=== PATIENT | male | born 1960 | race Caucasian/White ===

== ENCOUNTER → 2017-09-28 | Outpatient (CLI) | payer BC | LOC: CARD 12:05 | PROVIDERS: ATTEND Family Medicine | DX: I70.209 Unspecified atherosclerosis of native arteries of extremities, unspecified extremity (principal) | CPT/HCPCS: 93925 ==

== ENCOUNTER → 2019-09-20 | Day surgery (SDC) | payer BC ==
[2019-09-18 11:43] LABS: BASOPHILS # (AUTO) 0.1 (0.0-0.1); EOSINOPHILS # (AUTO) 0.2 (0.0-0.4); EOSINOPHILS % 2.9 % (0.0-6.0); HEMATOCRIT 49.9 % (38.2-49.6); HEMOGLOBIN 17.1 g/dL (14.0-18.0); LYMPHOCYTES % 27.5 % (18.0-39.1); MEAN CORPUSCULAR HEMOGLOBIN 29.8 pg (28-32); MEAN CORPUSCULAR HGB CONC 34.3 g/dL (31-35); MEAN CORPUSCULAR VOLUME 87.1 fL (81-99); MONOCYTES # (AUTO) 0.5 (0.2-0.8); MONOCYTES % 7.6 % (4.4-11.3); NEUTROPHILS # (AUTO) 4.3 (2.1-6.9); NEUTROPHILS % 60.6 % (38.7-80.0); PLATELET COUNT 216 x10e3/uL (140-360); RED BLOOD COUNT 5.73 x10e6/uL (4.3-5.7); RED CELL DISTRIBUTION WIDTH 12.1 % (11.7-14.4)
[2019-09-18 11:54] LABS: INR 0.83; PROTHROMBIN TIME 11.9 seconds (11.9-14.5)
[2019-09-18 12:06] LABS: ALANINE AMINOTRANSFERASE 17 IU/L (0-55); ALBUMIN 3.9 g/dL (3.5-5.0); ALBUMIN/GLOBULIN RATIO 1.2 (0.8-2.0); ALKALINE PHOSPHATASE 107 IU/L (40-150); ANION GAP 17.2 mmol/L (8-16); BLOOD UREA NITROGEN 13 mg/dL (7-26); BUN/CREATININE RATIO 13 (6-25); CALCIUM 9.6 mg/dL (8.4-10.2); CARBON DIOXIDE 24 mmol/L (22-29); CHLORIDE 101 mmol/L (98-107); CREATININE, SERUM 1.04 mg/dL (0.72-1.25); EST GLOMERULAR FILTRATION RATE > 60 ML/MIN (60-); GLUCOSE 199 mg/dL (74-118); POTASSIUM 4.2 mmol/L (3.5-5.1); SODIUM 138 mmol/L (136-145)
[~2019-09-20] VITALS: Ht 180.3 cm; Wt 93.0 kg
[~2019-09-20] MED LIST: ACETAMINOPHEN 1000 MG/100 ML 100 ML IV ONE; ATORVASTATIN CA10 MG PO; BENZOCAINE 20% SPR 60 ML CAN ONE; GLIPIZIDE5 MG PO; KOMBIGLYZE XR1 EACH PO; LIDOCAINE HCL 2% LOCAL INJ 5 ML SDV VIAL INJ ONE; MIDAZOLAM HCL 2 MG/2 ML VIAL ONE; PROPOFOL IV EMULSION 10 MG/ML 20 ML VIAL ONE; SODIUM CHLORIDE 0.9% 1000ML 1,000 ML ONE
[2019-09-20 08:45] VITALS: BP 114/80
--- NOTE | 2019-09-20 08:45 | NUR ---
0845am Pt Received Rm #10 Bedside,Identfierx2. Back to baseline orientation.Oriented and appropriate.PERRLA,respirations even and unlabored on RA.Pulsesx4 PPx4PT/DP Cap refll brisk<3 sec.Prepped for JJ Pre surgical evaluation for potential valvular surgery. Skin warm and dry, integrity appears intact. IVg#20 in Rt hand.Presents healthy w/o s/s of infiltration or complaint.Abdomen soft and supple,pt offered toileting voided this am,Denies other needs . No personal affects with patient. Family at bedside. Peg .Pt and family verbalize understanding of procedural event. Anesthesia notified pt ready in Rm #10. carlin/carlos
[2019-09-20 12:05] VITALS: BP 105/70
== END | disposition home or self-care (01) ==
LOC: OR 09:26
PROVIDERS: ATTEND Internal Medicine
DX: I35.0 Nonrheumatic aortic (valve) stenosis (principal); I25.10 Atherosclerotic heart disease of native coronary artery without angina pectoris; I25.2 Old myocardial infarction; I10 Essential (primary) hypertension; E78.5 Hyperlipidemia, unspecified; R94.31 Abnormal electrocardiogram [ECG] [EKG]; E13.8 Other specified diabetes mellitus with unspecified complications; F17.210 Nicotine dependence, cigarettes, uncomplicated; Z82.49 Family history of ischemic heart disease and other diseases of the circulatory system; Z83.3 Family history of diabetes mellitus
CPT/HCPCS: 36415; 80053; 85025; 85610; 93312; 93320; 93325; J0131; J2001; J2250; J2704; J7030; 93307

== ENCOUNTER 2019-10-29 05:39 | Emergency (ER) | payer BC ==
[~2019-10-29] VITALS: Ht 180.3 cm; Wt 90.7 kg
[~2019-10-29 05:39] MED LIST changes: -ACETAMINOPHEN 1000 MG/100 ML 100 ML IV ONE; -BENZOCAINE 20% SPR 60 ML CAN ONE; -LIDOCAINE HCL 2% LOCAL INJ 5 ML SDV VIAL INJ ONE; -MIDAZOLAM HCL 2 MG/2 ML VIAL ONE; -PROPOFOL IV EMULSION 10 MG/ML 20 ML VIAL ONE; -SODIUM CHLORIDE 0.9% 1000ML 1,000 ML ONE
--- OUTSIDE RECORDS SUMMARY | 2019-10-29 05:43 | XMS REPORT ---
Author Author [facility] Address Unknown Phone Unavailable Care Team Providers Care Commercial Lines Underwriter Name Role Phone SCAR CONTRERAS Unavailable Unavailable Matthew VALADEZ Unavailable Unavailable Problems This patient has no known problems. Allergies, Adverse Reactions, Alerts This patient has no known allergies or adverse reactions. Medications This patient has no known medications. Results Test Description Test Time Test Comments Text Results Atomic Results Result Comments RAPID INFLUENZA A&B SCREEN 2019-10-24 13:33:00 RAPID INFLUENZA A AG (BEAKER) (test wqef=0267) Positive Negative, Inconclusive RAPID INFLUENZA B AG (BEAKER) (test ldon=9291) Negative Negative, Inconclusive ANAEROBIC [id number] 16:27:00* Test Item Value Reference Range Comments CULTURE (BEAKER) (test sdej=5625) No anaerobes isolated POCT-GLUCOSE [id number] 08:39:00* Test Item Value Reference Range Comments POC-GLUCOSE METER (BEAKER) (test fbye=4454) 184 mg/dL 70-110 : TESTED AT [facility] [address] [facility], [address]: Application Development Consultant/Supervisor Advice [id number] for MIKAELA DAVENPORT [id number] 06:43:00* Test Item Value Reference Range Comments PHOSPHORUS (BEAKER) (test nbqw=804) 3.0 mg/dL 2.3-4.7 Application Development Consultant ID - LESLI [id number] 06:43:00* Test Item Value Reference Range Comments MAGNESIUM (BEAKER) (test tdgx=135) 1.8 mg/dL 1.6-2.6 Application Development Consultant ID - LESLI MBASIC METABOLIC [id number] 06:43:00* Test Item Value Reference Range Comments SODIUM (BEAKER) (test zobb=944) 140 meq/L 136-145 POTASSIUM (BEAKER) (test zsbq=419) 4.0 meq/L 3.5-5.1 CHLORIDE (BEAKER) (test wjdi=639) 105 meq/L 98-107 CO2 (BEAKER) (test stmx=169) 29 meq/L 22-29 BLOOD UREA NITROGEN (BEAKER) (test hxsj=739) 8 mg/dL 7-21 CREATININE (BEAKER) (test gipw=910) 0.80 mg/dL 0.57-1.25 GLUCOSE RANDOM (BEAKER) (test ytwh=319) 206 mg/dL 70-105 CALCIUM (BEAKER) (test irxq=778) 8.5 mg/dL 8.4-10.2 EGFR (BEAKER) (test txqx=6759) 99 mL/min/1.73 sq m ESTIMATED GFR IS NOT ACCURATE CREATININE CLEARANCE IN PREDICTING GLOMERULAR FILTRATION RATE. ESTIMATED GFR IS NOT APPLICABLE FOR DIALYSIS PATIENTS. Application Development Consultant ID - LESLI [facility] (HEMOGRAM ONLY)2019-10-12 06:23:00* Test Item Value Reference Range Comments WHITE BLOOD CELL COUNT (BEAKER) (test nclc=535) 5.1 K/ L 3.5-10.5 RED BLOOD CELL COUNT (BEAKER) (test kcqo=675) 3.57 M/ L 4.63-6.08 HEMOGLOBIN (BEAKER) (test nhbr=673) 10.5 GM/DL 13.7-17.5 HEMATOCRIT (BEAKER) (test vcab=106) 32.1 % 40.1-51.0 MEAN CORPUSCULAR VOLUME (BEAKER) (test ksul=933) 89.9 fL 79.0-92.2 MEAN CORPUSCULAR HEMOGLOBIN (BEAKER) (test rsnb=315) 29.4 pg 25.7-32.2 MEAN CORPUSCULAR HEMOGLOBIN CONC (BEAKER) (test kgye=209) 32.7 GM/DL 32.3-36.5 RED CELL DISTRIBUTION WIDTH (BEAKER) (test cewq=602) 12.1 % 11.6-14.4 PLATELET COUNT (BEAKER) (test btsy=056) 177 K/CU MM 150-450 MEAN PLATELET VOLUME (BEAKER) (test agmn=577) 9.4 fL 9.4-12.4 NUCLEATED RED BLOOD CELLS (BEAKER) (test uclb=029) 0 /100 WBC 0-0 POCT-GLUCOSE [id number] 23:20:00* Test Item Value Reference Range Comments POC-GLUCOSE METER (BEAKER) (test zeku=3365) 212 mg/dL 70-110 : TESTED AT [facility] [address] [facility], [address]: Application Development Consultant/Supervisor Advice [id number] for EAGLIN, JALISSIA POCT-GLUCOSE [id number] 22:03:00* Test Item Value Reference Range Comments POC-GLUCOSE METER (BEAKER) (test oinh=7601) 244 mg/dL 70-110 : TESTED AT [place] [id number] [facility], [address]: Application Development Consultant/Supervisor Advice [phone] for EAGLIN, JALISSIA POCT-GLUCOSE [id number] 15:09:00* Test Item Value Reference Range Comments POC-GLUCOSE METER (BEAKER) (test pmqi=1071) 146 mg/dL 70-110 : TESTED AT [facility] [address] [facility], [address]: Application Development Consultant/Supervisor Advice [phone] for Jesis Wright SURGICALLY OBTAINED CULTURE + GRAM [id number] 10:21:00* Test Item Value Reference Range Comments CULTURE (BEAKER) (test ngwj=4389) No growth GRAM STAIN RESULT (BEAKER) (test unxl=2461) 1+ WBCs GRAM STAIN RESULT (BEAKER) (test sqgh=20217) No organisms seen [id number] 08:18:00* Test Item Value Reference Range Comments MAGNESIUM (BEAKER) (test spiq=781) 1.9 mg/dL 1.6-2.6 Specimen slightly hemolyzed Application Development Consultant ID - ROCK [id number] 08:18:00* Test Item Value Reference Range Comments PHOSPHORUS (BEAKER) (test fxga=215) 2.5 mg/dL 2.3-4.7 Specimen slightly hemolyzed Application Development Consultant ID - ROCK FBASIC METABOLIC [id number] 08:18:00* Test Item Value Reference Range Comments SODIUM (BEAKER) (test zztx=982) 138 meq/L 136-145 POTASSIUM (BEAKER) (test ibgp=348) 3.8 meq/L 3.5-5.1 Specimen slightly hemolyzed CHLORIDE (BEAKER) (test rwra=843) 104 meq/L 98-107 CO2 (BEAKER) (test dtps=255) 26 meq/L 22-29 BLOOD UREA NITROGEN (BEAKER) (test qtcq=024) 9 mg/dL 7-21 CREATININE (BEAKER) (test yric=913) 0.72 mg/dL 0.57-1.25 Specimen slightly hemolyzed GLUCOSE RANDOM (BEAKER) (test irdz=915) 156 mg/dL 70-105 CALCIUM (BEAKER) (test yglp=702) 8.4 mg/dL 8.4-10.2 EGFR (BEAKER) (test tewv=0287) 112 mL/min/1.73 sq m ESTIMATED GFR IS NOT ACCURATE CREATININE CLEARANCE IN PREDICTING GLOMERULAR FILTRATION RATE. ESTIMATED GFR IS NOT APPLICABLE FOR DIALYSIS PATIENTS. Application Development Consultant ID - ROCK [facility] (HEMOGRAM ONLY)2019-10-11 07:03:00* Test Item Value Reference Range Comments WHITE BLOOD CELL COUNT (BEAKER) (test kigg=016) 6.4 K/ L 3.5-10.5 RED BLOOD CELL COUNT (BEAKER) (test rrwx=796) 3.95 M/ L 4.63-6.08 HEMOGLOBIN (BEAKER) (test yczm=908) 11.4 GM/DL 13.7-17.5 HEMATOCRIT (BEAKER) (test odty=330) 34.8 % 40.1-51.0 MEAN CORPUSCULAR VOLUME (BEAKER) (test svxa=372) 88.1 fL 79.0-92.2 MEAN CORPUSCULAR HEMOGLOBIN (BEAKER) (test fwxy=927) 28.9 pg 25.7-32.2 MEAN CORPUSCULAR HEMOGLOBIN CONC (BEAKER) (test xbrc=207) 32.8 GM/DL 32.3-36.5 RED CELL DISTRIBUTION WIDTH (BEAKER) (test tlws=172) 12.1 % 11.6-14.4 PLATELET COUNT (BEAKER) (test xobe=774) 155 K/CU MM 150-450 MEAN PLATELET VOLUME (BEAKER) (test akfu=421) 10.1 fL 9.4-12.4 NUCLEATED RED BLOOD CELLS (BEAKER) (test inho=836) 0 /100 WBC 0-0 POCT-GLUCOSE [id number] 00:04:00* Test Item Value Reference Range Comments POC-GLUCOSE METER (BEAKER) (test nvqm=4593) 193 mg/dL 70-110 : TESTED AT [address] [place], [address]: Application Development Consultant/Supervisor Advice [phone] for JEFE WILKES POCT-GLUCOSE [id number] 22:37:00* Test Item Value Reference Range Comments POC-GLUCOSE METER (BEAKER) (test hibi=6955) 280 mg/dL 70-110 : TESTED AT [address], [address]: Application Development Consultant/Supervisor Advice [phone] for INGRIS LEW POCT-GLUCOSE [id number] 13:19:00* Test Item Value Reference Range Comments POC-GLUCOSE METER (BEAKER) (test vndr=4481) 140 mg/dL 70-110 : TESTED AT [address], [address]: Application Development Consultant/Supervisor Advice [phone] for ELVI LENNON POCT-GLUCOSE [id number] 07:56:00* Test Item Value Reference Range Comments POC-GLUCOSE METER (BEAKER) (test eabp=9591) 167 mg/dL 70-110 : TESTED AT [address], [address]: Application Development Consultant/Supervisor Advice [phone] for ELVI LENNON [id number] 07:01:00* Test Item Value Reference Range Comments PHOSPHORUS (BEAKER) (test clte=373) 1.6 mg/dL 2.3-4.7 Application Development Consultant ID - [id number] 07:01:00* Test Item Value Reference Range Comments MAGNESIUM (BEAKER) (test gzke=029) 1.8 mg/dL 1.6-2.6 Application Development Consultant ID - LABASIC METABOLIC [id number] 07:01:00* Test Item Value Reference Range Comments SODIUM (BEAKER) (test ivhd=498) 136 meq/L 136-145 POTASSIUM (BEAKER) (test uqdi=536) 3.8 meq/L 3.5-5.1 CHLORIDE (BEAKER) (test veha=081) 100 meq/L 98-107 CO2 (BEAKER) (test hprr=636) 29 meq/L 22-29 BLOOD UREA NITROGEN (BEAKER) (test stax=755) 9 mg/dL 7-21 CREATININE (BEAKER) (test awfb=017) 0.72 mg/dL 0.57-1.25 GLUCOSE RANDOM (BEAKER) (test jzwa=950) 155 mg/dL 70-105 CALCIUM (BEAKER) (test usmz=617) 8.8 mg/dL 8.4-10.2 EGFR (BEAKER) (test xlce=6322) 112 mL/min/1.73 sq m ESTIMATED GFR IS NOT ACCURATE CREATININE CLEARANCE IN PREDICTING GLOMERULAR FILTRATION RATE. ESTIMATED GFR IS NOT APPLICABLE FOR DIALYSIS PATIENTS. Application Development Consultant ID - LAPT/[id number] 06:39:00* Test Item Value Reference Range Comments PROTIME (BEAKER) (test dssn=403) 14.3 seconds 11.9-14.2 INR (BEAKER) (test qsrp=392) 1.1 <=5.9 PARTIAL THROMBOPLASTIN TIME (BEAKER) (test ppkt=153) 31.5 seconds 22.5-36.0 Effective 01/23/2019: PT Reference Range ChangeNew: 11.9-14.2 Previous: 11.7-14. 7RECOMMENDED COUMADIN/WARFARIN INR THERAPY RANGESSTANDARD DOSE: 2.0-3.0 Include s: PROPHYLAXIS for venous thrombosis, systemic embolization; TREATMENT for venou s thrombosis and/or pulmonary embolus.HIGH RISK: Target INR is 2.5-3.5 for patie nts wiht mechanical heart valves.CBC (HEMOGRAM ONLY)2019-10-10 06:31:00* Test Item Value Reference Range Comments WHITE BLOOD CELL COUNT (BEAKER) (test fywn=359) 6.1 K/ L 3.5-10.5 RED BLOOD CELL COUNT (BEAKER) (test vuel=162) 3.88 M/ L 4.63-6.08 HEMOGLOBIN (BEAKER) (test yjyh=988) 11.5 GM/DL 13.7-17.5 HEMATOCRIT (BEAKER) (test yclw=390) 35.1 % 40.1-51.0 MEAN CORPUSCULAR VOLUME (BEAKER) (test qimj=787) 90.5 fL 79.0-92.2 MEAN CORPUSCULAR HEMOGLOBIN (BEAKER) (test uekc=430) 29.6 pg 25.7-32.2 MEAN CORPUSCULAR HEMOGLOBIN CONC (BEAKER) (test fzhb=594) 32.8 GM/DL 32.3-36.5 RED CELL DISTRIBUTION WIDTH (BEAKER) (test zldb=198) 12.3 % 11.6-14.4 PLATELET COUNT (BEAKER) (test zwoq=089) 113 K/CU MM 150-450 MEAN PLATELET VOLUME (BEAKER) (test wjil=455) 10.1 fL 9.4-12.4 NUCLEATED RED BLOOD CELLS (BEAKER) (test zcko=964) 0 /100 WBC 0-0 RAD, CHEST, 1 VIEW, NON [id number] 05:39:00while patient is intubated or has chest tubes.Reason for exam:->Status post CV SurgeryShould this be performed at the bedside?->YesFINAL REPORT CLINICAL INDICATION: Postop Comparison: 10/09/2019 The cardiomediastinal contours are stable. The lung volumes remain low. Bilateral parenchymal opacities are similar to previous. There is no pneumothorax. A right IJ CVC has been removed. Remaining support lines are stable. Signed: Spencer Noe MDR[facility]ort Verified Date/Time: 10/10/2019 05:39:45 IC ACID, [id number] 13:27:00* Test Item Value Reference Range Comments LACTATE BLOOD ARTERIAL (2) (BEAKER) (test yijf=0546) 0.9 mmol/L 0.5-2.2 Specimen slightly hemolyzed Application Development Consultant ID - JACOB RAMOS SATURATION, [id number] 12:56:00* Test Item Value Reference Range Comments O2 SATURATION (MEASURED) (BEAKER) (test gckm=1699) 61.6 % POCT-GLUCOSE [id number] 12:50:00* Test Item Value Reference Range Comments POC-GLUCOSE METER (BEAKER) (test zqbi=0576) 154 mg/dL 70-110 : TESTED AT [facility] [address] [facility], [address]: Application Development Consultant/Supervisor Advice [phone] for DHARA SR RAD, CHEST, 1 VIEW, NON [id number] 06:52:00while patient is intubated or has chest tubes.Reason for exam:->Status post CV SurgeryShould this be performed at the bedside?->YesFINAL REPORT RAD, CHEST, 1 VIEW, NON DEPT INDICATION: Status post CV Surgery COMPARISON: Prior day's exam FINDINGS: Portable frontal view of the chest. IMPRESSION: Support Lines: Stable. Lungs and pleura: Stable interstitial congestion. Trace bilateral effusions. No pneumothorax.Heart and mediastinum: Stable contours. Stable surgical changes.Additional findings: None. Signed: JR Del Castillo Robert MDRepjohn Verified Date/Time: 10/09/2019 06:52:44 Reading Location: [facility] Radiology Reading Room [id number] 04:00:00* Test Item Value Reference Range Comments PHOSPHORUS (BEAKER) (test hnib=925) 2.3 mg/dL 2.3-4.7 Application Development Consultant ID - [id number] 04:00:00* Test Item Value Reference Range Comments MAGNESIUM (BEAKER) (test okfd=131) 1.9 mg/dL 1.6-2.6 Application Development Consultant ID - GALAPBASIC METABOLIC [id number] 04:00:00* Test Item Value Reference Range Comments SODIUM (BEAKER) (test jkdh=309) 135 meq/L 136-145 POTASSIUM (BEAKER) (test agkv=647) 4.2 meq/L 3.5-5.1 CHLORIDE (BEAKER) (test tumc=352) 106 meq/L 98-107 CO2 (BEAKER) (test qrvv=617) 23 meq/L 22-29 BLOOD UREA NITROGEN (BEAKER) (test kotu=778) 10 mg/dL 7-21 CREATININE (BEAKER) (test qvcv=662) 0.75 mg/dL 0.57-1.25 GLUCOSE RANDOM (BEAKER) (test ttup=201) 206 mg/dL 70-105 CALCIUM (BEAKER) (test ozcy=272) 8.4 mg/dL 8.4-10.2 EGFR (BEAKER) (test cxuo=2472) 107 mL/min/1.73 sq m ESTIMATED GFR IS NOT ACCURATE CREATININE CLEARANCE IN PREDICTING GLOMERULAR FILTRATION RATE. ESTIMATED GFR IS NOT APPLICABLE FOR DIALYSIS PATIENTS. Application Development Consultant ID - GALAPLACTIC ACID, [id number] 03:36:00* Test Item Value Reference Range Comments LACTATE BLOOD ARTERIAL (2) (BEAKER) (test rnpx=7015) 0.9 mmol/L 0.5-2.2 Application Development Consultant ID - GALAPOXYGEN SATURATION, [id number] 03:33:00* Test Item Value Reference Range Comments O2 SATURATION (MEASURED) (BEAKER) (test ldsw=8478) 87.4 % BLOOD GAS, [id number] 03:32:00* Test Item Value Reference Range Comments PH ARTERIAL (BEAKER) (test gbce=534) 7.36 7.35-7.45 PCO2 ARTERIAL (BEAKER) (test aywp=919) 46 mmHg 35-45 PO2 ARTERIAL (BEAKER) (test hdti=534) 114 mmHg 80-90 O2 SATURATION ARTERIAL (BEAKER) (test lrll=279) 98.0 % 96.0-97.0 HCO3 ARTERIAL (BEAKER) (test gdkf=948) 25 mmol/L 21-29 BASE EXCESS ARTERIAL (BEAKER) (test ljlw=499) -0.7 mmol/L -2.0-3.0 PATIENT TEMPERATURE (BEAKER) (test zkpu=1085) 36.7 C FIO2 (BEAKER) (test iaal=2062) 36.0 % CALCIUM, [id number] 03:31:00* Test Item Value Reference Range Comments CALCIUM IONIZED (BEAKER) (test nxer=508) 1.18 mmol/L 1.12-1.27 PH, BLOOD (BEAKER) (test iihg=0666) 7.35 CBC (HEMOGRAM ONLY)2019-10-09 03:23:00* Test Item Value Reference Range Comments WHITE BLOOD CELL COUNT (BEAKER) (test suzm=176) 8.9 K/ L 3.5-10.5 RED BLOOD CELL COUNT (BEAKER) (test gheo=422) 3.60 M/ L 4.63-6.08 HEMOGLOBIN (BEAKER) (test paoh=833) 10.6 GM/DL 13.7-17.5 HEMATOCRIT (BEAKER) (test yjkm=025) 32.8 % 40.1-51.0 MEAN CORPUSCULAR VOLUME (BEAKER) (test rjif=839) 91.1 fL 79.0-92.2 MEAN CORPUSCULAR HEMOGLOBIN (BEAKER) (test kdiu=915) 29.4 pg 25.7-32.2 MEAN CORPUSCULAR HEMOGLOBIN CONC (BEAKER) (test hfon=730) 32.3 GM/DL 32.3-36.5 RED CELL DISTRIBUTION WIDTH (BEAKER) (test qkso=390) 12.7 % 11.6-14.4 PLATELET COUNT (BEAKER) (test eyxb=959) 102 K/CU MM 150-450 MEAN PLATELET VOLUME (BEAKER) (test ndxh=068) 9.9 fL 9.4-12.4 NUCLEATED RED BLOOD CELLS (BEAKER) (test sqrt=692) 0 /100 WBC 0-0 POCT-GLUCOSE [id number] 15:28:00* Test Item Value Reference Range Comments POC-GLUCOSE METER (BEAKER) (test zcee=3892) 113 mg/dL 70-110 : TESTED AT [address], [address]: Application Development Consultant/Supervisor Advice [phone] for JARETH ROD POCT-GLUCOSE [id number] 12:58:00* Test Item Value Reference Range Comments POC-GLUCOSE METER (AKER) (test dhkj=9949) 105 mg/dL 70-110 : TESTED AT [address], [address]: Application Development Consultant/Supervisor Advice [phone] for JARETH ROD LACTIC ACID, [id number] 10:14:00* Test Item Value Reference Range Comments LACTATE BLOOD ARTERIAL (2) ([facility]) (test ohsr=1890) 1.1 mmol/L 0.5-2.2 Application Development Consultant ID - LESLI MPOCT-GLUCOSE [id number] 09:51:00* Test Item Value Reference Range Comments POC-GLUCOSE METER (BEAKER) (test vltf=4841) 124 mg/dL 70-110 : TESTED AT [address], [address]: Application Development Consultant/Supervisor Advice [phone] for JARETH ROD OXYGEN SATURATION, [id number] 09:51:00* Test Item Value Reference Range Comments O2 SATURATION (MEASURED) (BEAKER) (test szue=9790) 73.5 % BLOOD GAS, [id number] 09:50:00* Test Item Value Reference Range Comments PH ARTERIAL (BEAKER) (test ouys=819) 7.42 7.35-7.45 PCO2 ARTERIAL (BEAKER) (test galp=804) 40 mmHg 35-45 PO2 ARTERIAL (BEAKER) (test jjjz=079) 74 mmHg 80-90 O2 SATURATION ARTERIAL (BEAKER) (test oqvy=269) 95.4 % 96.0-97.0 HCO3 ARTERIAL (BEAKER) (test xouj=711) 26 mmol/L 21-29 BASE EXCESS ARTERIAL (BEAKER) (test sfze=259) 0.8 mmol/L -2.0-3.0 PATIENT TEMPERATURE (BEAKER) (test mjhc=8127) 36.6 C FIO2 (BEAKER) (test qaxm=6087) 36.0 % POCT-GLUCOSE [id number] 06:13:00* Test Item Value Reference Range Comments POC-GLUCOSE METER (BEAKER) (test xgal=0725) 130 mg/dL 70-110 : TESTED AT [place] [id number] [facility], [address]: Application Development Consultant/Supervisor Advice [phone] for MEGAN RAMSAY [id number] 04:35:00* Test Item Value Reference Range Comments PHOSPHORUS (BEAKER) (test mlgc=295) 4.0 mg/dL 2.3-4.7 Application Development Consultant ID - [id number] 04:35:00* Test Item Value Reference Range Comments MAGNESIUM (BEAKER) (test ahov=616) 2.0 mg/dL 1.6-2.6 Application Development Consultant ID - GALAPBASIC METABOLIC [id number] 04:35:00* Test Item Value Reference Range Comments SODIUM (BEAKER) (test rqci=927) 141 meq/L 136-145 POTASSIUM (BEAKER) (test ryps=316) 4.0 meq/L 3.5-5.1 CHLORIDE (BEAKER) (test uxyn=897) 111 meq/L 98-107 CO2 (BEAKER) (test lrma=648) 24 meq/L 22-29 BLOOD UREA NITROGEN (BEAKER) (test ioyx=998) 11 mg/dL 7-21 CREATININE (BEAKER) (test xnth=797) 0.79 mg/dL 0.57-1.25 GLUCOSE RANDOM (BEAKER) (test doqi=977) 116 mg/dL 70-105 CALCIUM (BEAKER) (test rbpy=374) 8.3 mg/dL 8.4-10.2 EGFR (BEAKER) (test tbfr=6402) 100 mL/min/1.73 sq m ESTIMATED GFR IS NOT ACCURATE CREATININE CLEARANCE IN PREDICTING GLOMERULAR FILTRATION RATE. ESTIMATED GFR IS NOT APPLICABLE FOR DIALYSIS PATIENTS. Application Development Consultant ID - GALAPLACTIC ACID, [id number] 04:31:00* Test Item Value Reference Range Comments LACTATE BLOOD ARTERIAL (2) (BEAKER) (test berb=9053) 2.0 mmol/L 0.5-2.2 Application Development Consultant ID - LESLI [id number] 04:30:00* Test Item Value Reference Range Comments PROTIME (BEAKER) (test eqsl=416) 14.8 seconds 11.9-14.2 INR (BEAKER) (test edlf=806) 1.2 <=5.9 PARTIAL THROMBOPLASTIN TIME (BEAKER) (test evsr=307) 30.5 seconds 22.5-36.0 Effective 01/23/2019: PT Reference Range ChangeNew: 11.9-14.2 Previous: 11.7-14. 7RECOMMENDED COUMADIN/WARFARIN INR THERAPY RANGESSTANDARD DOSE: 2.0-3.0 Include s: PROPHYLAXIS for venous thrombosis, systemic embolization; TREATMENT for venou s thrombosis and/or pulmonary embolus.HIGH RISK: Target INR is 2.5-3.5 for patie nts wiht mechanical heart valves.CALCIUM, [id number] 04:20:00* Test Item Value Reference Range Comments CALCIUM IONIZED (BEAKER) (test wnrq=144) 1.14 mmol/L 1.12-1.27 PH, BLOOD (BEAKER) (test snak=9275) 7.34 OXYGEN SATURATION, [id number] 04:19:00* Test Item Value Reference Range Comments O2 SATURATION (MEASURED) (BEAKER) (test zgla=2849) 68.5 % CBC (HEMOGRAM ONLY)2019-10-08 04:18:00* Test Item Value Reference Range Comments WHITE BLOOD CELL COUNT (BEAKER) (test xiun=814) 10.1 K/ L 3.5-10.5 RED BLOOD CELL COUNT (BEAKER) (test ooxc=470) 3.81 M/ L 4.63-6.08 HEMOGLOBIN (BEAKER) (test halt=108) 11.4 GM/DL 13.7-17.5 HEMATOCRIT (BEAKER) (test aqdc=786) 33.3 % 40.1-51.0 MEAN CORPUSCULAR VOLUME (BEAKER) (test ddkx=358) 87.4 fL 79.0-92.2 MEAN CORPUSCULAR HEMOGLOBIN (BEAKER) (test qcam=656) 29.9 pg 25.7-32.2 MEAN CORPUSCULAR HEMOGLOBIN CONC (BEAKER) (test ywyd=277) 34.2 GM/DL 32.3-36.5 RED CELL DISTRIBUTION WIDTH (BEAKER) (test rljj=827) 12.7 % 11.6-14.4 PLATELET COUNT (BEAKER) (test tpgf=634) 131 K/CU MM 150-450 MEAN PLATELET VOLUME (BEAKER) (test ybsj=074) 9.6 fL 9.4-12.4 NUCLEATED RED BLOOD CELLS (BEAKER) (test yzhv=398) 0 /100 WBC 0-0 RAD, CHEST, 1 VIEW, NON [id number] 04:09:00while patient is intubated or has chest tubes.Reason for exam:->Status post CV SurgeryShould this be performed at the bedside?->YesFINAL REPORT CLINICAL INDICATION: Postop Comparison: 10/07/2019 The cardiomediastinal contours are stable. The lung volumes have decreased slightly after extubation. Patchy infrahilar opacities may reflect atelectasis but pneumonitis should be excluded clinically. Trace bilateral effusions are suspected. There is no pneumothorax. Remaining support lines are stable. Signed: Spencer Noe [facility] Verified Date/Time: 10/08/2019 04:09:48 -GLUCOSE [id number] 02:14:00* Test Item Value Reference Range Comments POC-GLUCOSE METER (BEAKER) (test gixk=9831) 123 mg/dL 70-110 : TESTED AT [facility] [address] [facility], [id number]: Application Development Consultant/Supervisor Advice [id number] for CARA CHANEY POCT-GLUCOSE [id number] 00:18:00* Test Item Value Reference Range Comments POC-GLUCOSE METER (BEAKER) (test kufd=9530) 132 mg/dL 70-110 : TESTED AT [address], [address]: Application Development Consultant/Supervisor Advice [id number] for MEGAN RAMSAY POCT-GLUCOSE [id number] 23:18:00* Test Item Value Reference Range Comments POC-GLUCOSE METER (BEAKER) (test zctm=8839) 131 mg/dL 70-110 : TESTED AT [address], [address]: Application Development Consultant/Supervisor Advice [id number] for VINCENT SANTAMARIA POCT-GLUCOSE [id number] 22:22:00* Test Item Value Reference Range Comments POC-GLUCOSE METER (BEAKER) (test rwso=0920) 157 mg/dL 70-110 : TESTED AT [address], [address]: Application Development Consultant/Supervisor Advice [id number] for BHUPENDRA MEDEIROS POCT-GLUCOSE [id number] 21:22:00* Test Item Value Reference Range Comments POC-GLUCOSE METER (BEAKER) (test kyoo=4219) 156 mg/dL 70-110 : TESTED AT [address], [address]: Application Development Consultant/Supervisor Advice [id number] for CARA CHANEY POCT-GLUCOSE [id number] 20:31:00* Test Item Value Reference Range Comments POC-GLUCOSE METER (BEAKER) (test zzux=0579) 154 mg/dL 70-110 : TESTED AT [address], [address]: Application Development Consultant/Supervisor Advice [id number] for BISHOP- CARA LUNDBERG LACTIC ACID, [id number] 19:57:00* Test Item Value Reference Range Comments LACTATE BLOOD ARTERIAL (2) (BEAKER) (test mlsl=5000) 3.4 mmol/L 0.5-2.2 Specimen slightly hemolyzed Application Development Consultant ID - BSBLOOD GAS, [id number] 19:52:00* Test Item Value Reference Range Comments PH ARTERIAL (BEAKER) (test jfkk=092) 7.33 7.35-7.45 PCO2 ARTERIAL (BEAKER) (test xjsj=853) 52 mmHg 35-45 PO2 ARTERIAL (BEAKER) (test axww=755) 110 mmHg 80-90 O2 SATURATION ARTERIAL (BEAKER) (test pgfe=920) 97.6 % 96.0-97.0 HCO3 ARTERIAL (BEAKER) (test zrsq=699) 26 mmol/L 21-29 BASE EXCESS ARTERIAL (BEAKER) (test pttk=782) -0.3 mmol/L -2.0-3.0 PATIENT TEMPERATURE (BEAKER) (test kzwb=7403) 37.0 C FIO2 (BEAKER) (test gfxv=1120) 100.0 % GLUCOSE-STAT [id number] 19:52:00* Test Item Value Reference Range Comments GLUCOSE RANDOM (BEAKER) (test ijvk=180) 159 mg/dL 70-110 HGB/HCT (H&H) - STAT [id number] 19:52:00* Test Item Value Reference Range Comments HEMOGLOBIN (BEAKER) (test pgmi=813) 13.1 g/dL 13.0-16.8 HEMATOCRIT (BEAKER) (test trhf=315) 39.0 % 40.0-50.0 OXYGEN SATURATION, [id number] 19:51:00* Test Item Value Reference Range Comments O2 SATURATION (MEASURED) (BEAKER) (test oyae=9775) 71.2 % SODIUM NA-STAT [id number] 19:51:00* Test Item Value Reference Range Comments SODIUM (BEAKER) (test egkl=441) 142 meq/L 135-148 POTASSIUM-STAT [id number] 19:51:00* Test Item Value Reference Range Comments POTASSIUM (BEAKER) (test kiws=316) 4.3 meq/L 3.6-5.5 POCT-GLUCOSE [id number] 18:58:00* Test Item Value Reference Range Comments POC-GLUCOSE METER (BEAKER) (test cybu=2623) 199 mg/dL 70-110 : TESTED AT [place] [id number] [facility], [address]: Application Development Consultant/Supervisor Advice [phone] for MODIC, MEAGAN POCT-GLUCOSE [id number] 18:53:00* Test Item Value Reference Range Comments POC-GLUCOSE METER (BEAKER) (test eqtx=1217) 216 mg/dL 70-110 : TESTED AT [facility] [address] [facility], [address]: Application Development Consultant/Supervisor Advice [id number] for MODIC, MEAGAN THROMBOELASTOGRAPH (TEG)2019-10-07 18:41:00* Test Item Value Reference Range Comments TEG ACTIVATED CLOTTING TIME (BEAKER) (test jnuz=8402) 4.9 minutes 4.0-7.0 TEG FIBRINOGEN ACTIVITY (BEAKER) (test cnri=3448) 56.6 degrees 61.0-73.0 TEG PLT. AGGREGATION (BEAKER) (test xbqz=4072) 46.9 MM 55.0-65.0 TEG FIBRINOLYSIS (BEAKER) (test ozyp=2302) 0.0 % 0.0-5.0 TGH ACTIVATED CLOTTING TIME (BEAKER) (test flqa=2334) 4.8 minutes 4.0-7.0 TGH FIBRINOGEN ACTIVITY (BEAKER) (test swrk=1250) 60.4 degrees 61.0-73.0 TGH PLT. AGGREGATION (BEAKER) (test hrbs=5820) 54.3 MM 55.0-65.0 TGH FIBRINOLYSIS (BEAKER) (test juov=4946) 0.2 % 0.0-5.0 [id number] 18:31:00* Test Item Value Reference Range Comments POTASSIUM (BEAKER) (test deta=629) 3.8 meq/L 3.5-5.1 Application Development Consultant ID - [id number] 18:31:00* Test Item Value Reference Range Comments GLUCOSE RANDOM (BEAKER) (test rqud=125) 222 mg/dL 70-105 Application Development Consultant ID - BSLACTIC ACID, [id number] 18:30:00* Test Item Value Reference Range Comments LACTATE BLOOD ARTERIAL (2) (BEAKER) (test zhij=2612) 2.0 mmol/L 0.5-2.2 Application Development Consultant ID - BSBLOOD GAS, [id number] 18:08:00* Test Item Value Reference Range Comments PH ARTERIAL (BEAKER) (test kmlc=298) 7.38 7.35-7.45 PCO2 ARTERIAL (BEAKER) (test ydae=736) 43 mmHg 35-45 PO2 ARTERIAL (BEAKER) (test rfln=087) 97 mmHg 80-90 O2 SATURATION ARTERIAL (BEAKER) (test oisk=784) 97.5 % 96.0-97.0 HCO3 ARTERIAL (BEAKER) (test hzie=121) 25 mmol/L 21-29 BASE EXCESS ARTERIAL (BEAKER) (test grms=561) -1.0 mmol/L -2.0-3.0 PATIENT TEMPERATURE (BEAKER) (test ltnw=2382) 36.3 C FIO2 (BEAKER) (test ltlx=0626) 60.0 % GLUCOSE-STAT [id number] 18:08:00* Test Item Value Reference Range Comments GLUCOSE RANDOM (BEAKER) (test mxvt=635) 216 mg/dL 70-110 SODIUM NA-STAT [id number] 18:03:00* Test Item Value Reference Range Comments SODIUM (BEAKER) (test zjrq=443) 140 meq/L 135-148 POTASSIUM-STAT [id number] 18:03:00* Test Item Value Reference Range Comments POTASSIUM (BEAKER) (test zzlw=444) 3.7 meq/L 3.6-5.5 HGB/HCT (H&H) - STAT [id number] 18:03:00* Test Item Value Reference Range Comments HEMOGLOBIN (BEAKER) (test vols=399) 13.5 g/dL 13.0-16.8 HEMATOCRIT (BEAKER) (test mfph=712) 40.0 % 40.0-50.0 POCT-GLUCOSE [id number] 17:28:00* Test Item Value Reference Range Comments POC-GLUCOSE METER (BEAKER) (test xzwt=3436) 189 mg/dL 70-110 : TESTED AT [facility] [address] [facility], [id number]: Application Development Consultant/Supervisor Advice [phone]=[id number] for MEAGAN SIFUENTES BASIC METABOLIC [id number] 16:46:00* Test Item Value Reference Range Comments SODIUM (BEAKER) (test vxkc=425) 143 meq/L 136-145 POTASSIUM (BEAKER) (test rrsn=431) 4.0 meq/L 3.5-5.1 Specimen slightly hemolyzed CHLORIDE (BEAKER) (test gnhy=929) 110 meq/L 98-107 CO2 (BEAKER) (test zmvn=532) 24 meq/L 22-29 BLOOD UREA NITROGEN (BEAKER) (test bwnr=713) 11 mg/dL 7-21 CREATININE (BEAKER) (test qvkz=616) 0.79 mg/dL 0.57-1.25 Specimen slightly hemolyzed GLUCOSE RANDOM (BEAKER) (test ctsr=538) 216 mg/dL 70-105 CALCIUM (BEAKER) (test mntr=253) 8.6 mg/dL 8.4-10.2 EGFR (BEAKER) (test dzfy=5803) 100 mL/min/1.73 sq m ESTIMATED GFR IS NOT ACCURATE CREATININE CLEARANCE IN PREDICTING GLOMERULAR FILTRATION RATE. ESTIMATED GFR IS NOT APPLICABLE FOR DIALYSIS PATIENTS. Application Development Consultant ID - BSRAD, CHEST, 1 VIEW, NON [id number] 16:39:00Reason for exam:- >Status post CV Surgery post op day 0Should this be performed at the bedside?-> YesFINAL REPORT AP chest dated 10/07/2019 Comment: Heart is in upper limits of normal in size. Patient is status post sternotomy. Pulmonary vasculature is unremarkable. Subsegmental atelectasis is seen in the left lower lobe. The rest of the lungs are clear. Endotracheal tube, mediastinal tube, nasogastric tube, left chest tube, and right IJ central venous catheter are present. There is trace left pleural effusion. Signed: Jaya Best MDReport Verified Date/Time: 10/07/2019 16:39:27 Reading Location: [address] Consult Reading Room [id number] 16:37:00* Test Item Value Reference Range Comments MAGNESIUM (BEAKER) (test fqcx=664) 2.3 mg/dL 1.6-2.6 Specimen slightly hemolyzed Application Development Consultant ID - [id number] 16:37:00* Test Item Value Reference Range Comments PHOSPHORUS (BEAKER) (test bxja=385) 3.6 mg/dL 2.3-4.7 Specimen slightly hemolyzed Application Development Consultant ID - BSHEPATIC FUNCTION [id number] 16:37:00* Test Item Value Reference Range Comments TOTAL PROTEIN (BEAKER) (test ylby=481) 5.6 gm/dL 6.0-8.3 Specimen slightly hemolyzed ALBUMIN (BEAKER) (test ehsl=6235) 3.7 g/dL 3.5-5.0 Specimen slightly hemolyzed BILIRUBIN TOTAL (BEAKER) (test hlvp=637) 1.0 mg/dL 0.2-1.2 Specimen slightly hemolyzed BILIRUBIN DIRECT (BEAKER) (test gmul=959) 0.4 mg/dL 0.1-0.5 Specimen slightly hemolyzed ALKALINE PHOSPHATASE (BEAKER) (test ydqa=605) 71 U/L 40-150 AST (SGOT) (BEAKER) (test utro=996) 31 U/L 5-34 Specimen slightly hemolyzed ALT (SGPT) (BEAKER) (test vksv=259) 16 U/L 6-55 Specimen slightly hemolyzed Application Development Consultant ID - [id number] 16:23:00* Test Item Value Reference Range Comments FIBRINOGEN LEVEL (BEAKER) (test dftf=758) 229 mg/dl 225-434 [id number] 16:23:00* Test Item Value Reference Range Comments PROTIME (BEAKER) (test qyge=852) 15.8 seconds 11.9-14.2 INR (BEAKER) (test xnfs=392) 1.3 <=5.9 PARTIAL THROMBOPLASTIN TIME (BEAKER) (test oneh=312) 29.8 seconds 22.5-36.0 Effective 01/23/2019: PT Reference Range ChangeNew: 11.9-14.2 Previous: 11.7-14. 7RECOMMENDED COUMADIN/WARFARIN INR THERAPY RANGESSTANDARD DOSE: 2.0-3.0 Include s: PROPHYLAXIS for venous thrombosis, systemic embolization; TREATMENT for venou s thrombosis and/or pulmonary embolus.HIGH RISK: Target INR is 2.5-3.5 for patie nts wiht mechanical heart valves.LACTIC ACID, [id number] 16:22:00* Test Item Value Reference Range Comments LACTATE BLOOD ARTERIAL (2) (BEAKER) (test uwkp=2089) 2.9 mmol/L 0.5-2.2 Specimen slightly hemolyzed Application Development Consultant ID - BSCBC W/PLT COUNT & AUTO [id number] 16:14:00* Test Item Value Reference Range Comments WHITE BLOOD CELL COUNT (BEAKER) (test zjnq=018) 9.6 K/ L 3.5-10.5 RED BLOOD CELL COUNT (BEAKER) (test hone=239) 4.34 M/ L 4.63-6.08 HEMOGLOBIN (BEAKER) (test yumj=788) 13.1 GM/DL 13.7-17.5 HEMATOCRIT (BEAKER) (test ywom=449) 37.8 % 40.1-51.0 MEAN CORPUSCULAR VOLUME (BEAKER) (test pqqj=122) 87.1 fL 79.0-92.2 MEAN CORPUSCULAR HEMOGLOBIN (BEAKER) (test wzzb=712) 30.2 pg 25.7-32.2 MEAN CORPUSCULAR HEMOGLOBIN CONC (BEAKER) (test vtxg=076) 34.7 GM/DL 32.3-36.5 RED CELL DISTRIBUTION WIDTH (BEAKER) (test nmjr=417) 12.4 % 11.6-14.4 PLATELET COUNT (BEAKER) (test hxwo=865) 121 K/CU MM 150-450 MEAN PLATELET VOLUME (BEAKER) (test appy=705) 9.7 fL 9.4-12.4 NUCLEATED RED BLOOD CELLS (BEAKER) (test wtfr=941) 0 /100 WBC 0-0 NEUTROPHILS RELATIVE PERCENT (BEAKER) (test mpyq=281) 77 % LYMPHOCYTES RELATIVE PERCENT (BEAKER) (test xaxc=425) 13 % MONOCYTES RELATIVE PERCENT (BEAKER) (test idih=426) 9 % EOSINOPHILS RELATIVE PERCENT (BEAKER) (test umxu=976) 0 % BASOPHILS RELATIVE PERCENT (BEAKER) (test aozf=310) 0 % NEUTROPHILS ABSOLUTE COUNT (BEAKER) (test akry=849) 7.34 K/ L 1.78-5.38 LYMPHOCYTES ABSOLUTE COUNT (BEAKER) (test exze=636) 1.21 K/ L 1.32-3.57 MONOCYTES ABSOLUTE COUNT (BEAKER) (test cmye=638) 0.85 K/ L 0.30-0.82 EOSINOPHILS ABSOLUTE COUNT (BEAKER) (test rnni=784) 0.04 K/ L 0.04-0.54 BASOPHILS ABSOLUTE COUNT (BEAKER) (test rdhr=117) 0.04 K/ L 0.01-0.08 IMMATURE GRANULOCYTES-RELATIVE PERCENT (BEAKER) (test tknu=2695) 1 % 0-1 CALCIUM, [id number] 16:06:00* Test Item Value Reference Range Comments CALCIUM IONIZED (BEAKER) (test sdtg=780) 1.17 mmol/L 1.12-1.27 PH, BLOOD (BEAKER) (test tojv=1525) 7.37 BLOOD GAS, [id number] 16:04:00* Test Item Value Reference Range Comments PH ARTERIAL (BEAKER) (test hkds=856) 7.37 7.35-7.45 PCO2 ARTERIAL (BEAKER) (test gwxs=853) 43 mmHg 35-45 PO2 ARTERIAL (BEAKER) (test lria=048) 79 mmHg 80-90 O2 SATURATION ARTERIAL (BEAKER) (test ajww=141) 96.1 % 96.0-97.0 HCO3 ARTERIAL (BEAKER) (test tqry=372) 25 mmol/L 21-29 BASE EXCESS ARTERIAL (BEAKER) (test wtob=415) -1.1 mmol/L -2.0-3.0 PATIENT TEMPERATURE (BEAKER) (test uqcm=3291) 35.8 C FIO2 (BEAKER) (test hroc=4845) 60.0 % OXYGEN SATURATION, [id number] 16:03:00* Test Item Value Reference Range Comments O2 SATURATION (MEASURED) (BEAKER) (test cuwk=1651) 76.5 % [id number] 14:48:00* Test Item Value Reference Range Comments ACTIVATED CLOTTING TIME (BEAKER) (test inxu=741) 98 sec Reference Range: 74- 137 seconds, Baseline/TESTED AT [place] [id number] 14:48:00* Test Item Value Reference Range Comments ACTIVATED CLOTTING TIME (BEAKER) (test onwh=822) 543 sec Reference Range: 74-137 seconds, Baseline/TESTED AT [place] [id number] 14:48:00* Test Item Value Reference Range Comments ACTIVATED CLOTTING TIME (BEAKER) (test erxi=684) 444 sec Reference Range: 74-137 seconds, Baseline/TESTED AT [place] [id number] 14:48:00* Test Item Value Reference Range Comments ACTIVATED CLOTTING TIME (BEAKER) (test begw=437) 560 sec Reference Range: 74-137 seconds, Baseline/TESTED AT [place] [id number] 14:48:00* Test Item Value Reference Range Comments ACTIVATED CLOTTING TIME (BEAKER) (test hrjj=909) 610 sec Reference Range: 74-137 seconds, Baseline/TESTED AT [place] [id number] 14:48:00* Test Item Value Reference Range Comments ACTIVATED CLOTTING TIME (BEAKER) (test awum=018) 653 sec Reference Range: 74-137 seconds, Baseline/TESTED AT [place] [address] [id number] 14:48:00* Test Item Value Reference Range Comments ACTIVATED CLOTTING TIME (BEAKER) (test tymf=092) 456 sec Reference Range: 74-137 seconds, Baseline/TESTED AT [place] [address] [id number] 14:48:00* Test Item Value Reference Range Comments ACTIVATED CLOTTING TIME (BEAKER) (test gpir=328) 571 sec Reference Range: 74-137 seconds, Baseline/TESTED AT [place] [address] [id number] 14:48:00* Test Item Value Reference Range Comments ACTIVATED CLOTTING TIME (BEAKER) (test icjl=126) 389 sec Reference Range: 74-137 seconds, Baseline/TESTED AT [place] [address] BLOOD GAS, [id number] 14:07:00* Test Item Value Reference Range Comments PH ARTERIAL (BEAKER) (test ynpf=356) 7.29 7.35-7.45 PCO2 ARTERIAL (BEAKER) (test ottp=325) 46 mmHg 35-45 PO2 ARTERIAL (BEAKER) (test rqcf=649) 142 mmHg 80-90 O2 SATURATION ARTERIAL (BEAKER) (test qqib=020) 98.6 % 96.0-97.0 HCO3 ARTERIAL (BEAKER) (test ffwl=856) 22 mmol/L 21-29 BASE EXCESS ARTERIAL (BEAKER) (test nuap=827) -5.2 mmol/L -2.0-3.0 PATIENT TEMPERATURE (BEAKER) (test vlzz=7723) 35.5 C FIO2 (BEAKER) (test cpsf=6935) 95.0 % GLUCOSE-STAT [id number] 14:07:00* Test Item Value Reference Range Comments GLUCOSE RANDOM (BEAKER) (test lozc=947) 277 mg/dL 70-110 HGB/HCT (H&H) - STAT [id number] 14:07:00* Test Item Value Reference Range Comments HEMOGLOBIN (BEAKER) (test lqns=210) 10.5 g/dL 13.0-16.8 HEMATOCRIT (BEAKER) (test ujvq=450) 31.0 % 40.0-50.0 CALCIUM, [id number] 14:06:00* Test Item Value Reference Range Comments CALCIUM IONIZED (BEAKER) (test njgm=556) 1.25 mmol/L 1.12-1.27 PH, BLOOD (BEAKER) (test iqxd=3641) 7.27 SODIUM NA-STAT [id number] 14:06:00* Test Item Value Reference Range Comments SODIUM (BEAKER) (test moaw=769) 135 meq/L 135-148 POTASSIUM-STAT [id number] 14:06:00* Test Item Value Reference Range Comments POTASSIUM (BEAKER) (test mhcx=784) 4.5 meq/L 3.6-5.5 BLOOD GAS, [id number] 13:29:00* Test Item Value Reference Range Comments PH ARTERIAL (BEAKER) (test wnrc=913) 7.38 7.35-7.45 PCO2 ARTERIAL (BEAKER) (test mkur=576) 39 mmHg 35-45 PO2 ARTERIAL (BEAKER) (test devv=518) 291 mmHg 80-90 O2 SATURATION ARTERIAL (BEAKER) (test dxuc=978) 99.7 % 96.0-97.0 HCO3 ARTERIAL (BEAKER) (test ntye=978) 23 mmol/L 21-29 BASE EXCESS ARTERIAL (BEAKER) (test lyhf=446) -2.3 mmol/L -2.0-3.0 PATIENT TEMPERATURE (BEAKER) (test limv=6147) 34.8 C FIO2 (BEAKER) (test ivwj=9554) 75.0 % SODIUM NA-STAT [id number] 13:29:00* Test Item Value Reference Range Comments SODIUM (BEAKER) (test irrk=093) 134 meq/L 135-148 POTASSIUM-STAT [id number] 13:29:00* Test Item Value Reference Range Comments POTASSIUM (BEAKER) (test zygi=344) 5.7 meq/L 3.6-5.5 GLUCOSE-STAT [id number] 13:29:00* Test Item Value Reference Range Comments GLUCOSE RANDOM (BEAKER) (test lfax=527) 317 mg/dL 70-110 HGB/HCT (H&H) - STAT [id number] 13:29:00* Test Item Value Reference Range Comments HEMOGLOBIN (BEAKER) (test wuqj=003) 9.8 g/dL 13.0-16.8 HEMATOCRIT (BEAKER) (test lcmf=636) 29.0 % 40.0-50.0 BLOOD GAS, [id number] 12:51:00* Test Item Value Reference Range Comments PH ARTERIAL (BEAKER) (test bjjv=250) 7.40 7.35-7.45 PCO2 ARTERIAL (BEAKER) (test fraf=768) 39 mmHg 35-45 PO2 ARTERIAL (BEAKER) (test faml=319) 291 mmHg 80-90 O2 SATURATION ARTERIAL (BEAKER) (test actf=338) 99.7 % 96.0-97.0 HCO3 ARTERIAL (BEAKER) (test jdyi=884) 24 mmol/L 21-29 BASE EXCESS ARTERIAL (BEAKER) (test jubm=629) -1.1 mmol/L -2.0-3.0 PATIENT TEMPERATURE (BEAKER) (test fvqb=2136) 34.7 C FIO2 (BEAKER) (test hkdi=0308) 75.0 % SODIUM NA-STAT [id number] 12:51:00* Test Item Value Reference Range Comments SODIUM (BEAKER) (test icnh=461) 132 meq/L 135-148 POTASSIUM-STAT [id number] 12:51:00* Test Item Value Reference Range Comments POTASSIUM (BEAKER) (test nxfa=831) 5.8 meq/L 3.6-5.5 GLUCOSE-STAT [id number] 12:51:00* Test Item Value Reference Range Comments GLUCOSE RANDOM (BEAKER) (test muus=605) 344 mg/dL 70-110 HGB/HCT (H&H) - STAT [id number] 12:51:00* Test Item Value Reference Range Comments HEMOGLOBIN (BEAKER) (test vcsh=727) 10.6 g/dL 13.0-16.8 HEMATOCRIT (BEAKER) (test uwpo=573) 31.0 % 40.0-50.0 BLOOD GAS, [id number] 12:24:00* Test Item Value Reference Range Comments PH ARTERIAL (BEAKER) (test wyeu=440) 7.39 7.35-7.45 PCO2 ARTERIAL (BEAKER) (test fbkm=390) 38 mmHg 35-45 PO2 ARTERIAL (BEAKER) (test qkax=802) 262 mmHg 80-90 O2 SATURATION ARTERIAL (BEAKER) (test fvox=485) 99.6 % 96.0-97.0 HCO3 ARTERIAL (BEAKER) (test nwvi=461) 25 mmol/L 21-29 BASE EXCESS ARTERIAL (BEAKER) (test bzqd=141) -2.8 mmol/L -2.0-3.0 PATIENT TEMPERATURE (BEAKER) (test yqap=8882) 26.9 C FIO2 (BEAKER) (test fhvv=7792) 60.0 % SODIUM NA-STAT [id number] 12:24:00* Test Item Value Reference Range Comments SODIUM (BEAKER) (test jemg=762) 133 meq/L 135-148 GLUCOSE-STAT [id number] 12:24:00* Test Item Value Reference Range Comments GLUCOSE RANDOM (BEAKER) (test kkfm=591) 360 mg/dL 70-110 HGB/HCT (H&H) - STAT [id number] 12:24:00* Test Item Value Reference Range Comments HEMOGLOBIN (BEAKER) (test ttht=197) 11.2 g/dL 13.0-16.8 HEMATOCRIT (BEAKER) (test lbsm=781) 33.0 % 40.0-50.0 POTASSIUM-STAT [id number] 12:23:00* Test Item Value Reference Range Comments POTASSIUM (BEAKER) (test utwj=497) 5.0 meq/L 3.6-5.5 BLOOD GAS, [id number] 11:47:00* Test Item Value Reference Range Comments PH ARTERIAL (BEAKER) (test dknq=518) 7.38 7.35-7.45 PCO2 ARTERIAL (BEAKER) (test zeei=674) 38 mmHg 35-45 PO2 ARTERIAL (BEAKER) (test ejrd=626) 316 mmHg 80-90 O2 SATURATION ARTERIAL (BEAKER) (test foaj=528) 99.7 % 96.0-97.0 HCO3 ARTERIAL (BEAKER) (test rzyb=649) 24 mmol/L 21-29 BASE EXCESS ARTERIAL (BEAKER) (test bzde=546) -3.6 mmol/L -2.0-3.0 PATIENT TEMPERATURE (BEAKER) (test hyam=9405) 26.8 C FIO2 (BEAKER) (test wnsl=8607) 60.0 % SODIUM NA-STAT [id number] 11:47:00* Test Item Value Reference Range Comments SODIUM (BEAKER) (test occn=641) 133 meq/L 135-148 GLUCOSE-STAT [id number] 11:47:00* Test Item Value Reference Range Comments GLUCOSE RANDOM (BEAKER) (test qvwr=769) 370 mg/dL 70-110 HGB/HCT (H&H) - STAT [id number] 11:47:00* Test Item Value Reference Range Comments HEMOGLOBIN (BEAKER) (test xfcp=837) 11.0 g/dL 13.0-16.8 HEMATOCRIT (BEAKER) (test adfq=602) 32.0 % 40.0-50.0 POTASSIUM-STAT [id number] 11:46:00* Test Item Value Reference Range Comments POTASSIUM (BEAKER) (test cwas=995) 5.1 meq/L 3.6-5.5 BLOOD GAS, [id number] 11:22:00* Test Item Value Reference Range Comments PH ARTERIAL (BEAKER) (test dkgc=461) 7.33 7.35-7.45 PCO2 ARTERIAL (BEAKER) (test xshv=472) 44 mmHg 35-45 PO2 ARTERIAL (BEAKER) (test ynbi=682) 285 mmHg 80-90 O2 SATURATION ARTERIAL (BEAKER) (test znif=978) 99.6 % 96.0-97.0 HCO3 ARTERIAL (BEAKER) (test mjzk=381) 26 mmol/L 21-29 BASE EXCESS ARTERIAL (BEAKER) (test ijhl=852) -3.2 mmol/L -2.0-3.0 PATIENT TEMPERATURE (BEAKER) (test qccd=9783) 26.8 C FIO2 (BEAKER) (test doch=1475) 60.0 % SODIUM NA-STAT [id number] 11:22:00* Test Item Value Reference Range Comments SODIUM (BEAKER) (test kckj=899) 133 meq/L 135-148 GLUCOSE-STAT [id number] 11:22:00* Test Item Value Reference Range Comments GLUCOSE RANDOM (BEAKER) (test ukta=599) 332 mg/dL 70-110 HGB/HCT (H&H) - STAT [id number] 11:22:00* Test Item Value Reference Range Comments HEMOGLOBIN (BEAKER) (test wyuo=384) 10.7 g/dL 13.0-16.8 HEMATOCRIT (BEAKER) (test hwql=793) 31.0 % 40.0-50.0 POTASSIUM-STAT [id number] 11:21:00* Test Item Value Reference Range Comments POTASSIUM (BEAKER) (test zbtm=427) 4.5 meq/L 3.6-5.5 BLOOD GAS, [id number] 11:01:00* Test Item Value Reference Range Comments PH ARTERIAL (BEAKER) (test zxpm=236) 7.42 7.35-7.45 PCO2 ARTERIAL (BEAKER) (test wdtw=971) 34 mmHg 35-45 PO2 ARTERIAL (BEAKER) (test lnkh=041) 295 mmHg 80-90 O2 SATURATION ARTERIAL (BEAKER) (test mxni=000) 99.7 % 96.0-97.0 HCO3 ARTERIAL (BEAKER) (test lfrq=871) 24 mmol/L 21-29 BASE EXCESS ARTERIAL (BEAKER) (test kixg=044) -2.8 mmol/L -2.0-3.0 PATIENT TEMPERATURE (BEAKER) (test tqbx=9586) 28.6 C FIO2 (BEAKER) (test kczb=1395) 60.0 % SODIUM NA-STAT [id number] 11:01:00* Test Item Value Reference Range Comments SODIUM (BEAKER) (test xhln=830) 131 meq/L 135-148 GLUCOSE-STAT [id number] 11:01:00* Test Item Value Reference Range Comments GLUCOSE RANDOM (BEAKER) (test hjuf=309) 327 mg/dL 70-110 HGB/HCT (H&H) - STAT [id number] 11:01:00* Test Item Value Reference Range Comments HEMOGLOBIN (BEAKER) (test nuzc=042) 10.4 g/dL 13.0-16.8 HEMATOCRIT (BEAKER) (test bimg=337) 31.0 % 40.0-50.0 POTASSIUM-STAT [id number] 11:00:00* Test Item Value Reference Range Comments POTASSIUM (BEAKER) (test load=763) 4.8 meq/L 3.6-5.5 POTASSIUM-STAT [id number] 10:36:00* Test Item Value Reference Range Comments POTASSIUM (BEAKER) (test uoin=180) 4.6 meq/L 3.6-5.5 BLOOD GAS, [id number] 10:36:00* Test Item Value Reference Range Comments PH ARTERIAL (BEAKER) (test doio=354) 7.48 7.35-7.45 PCO2 ARTERIAL (BEAKER) (test yaga=176) 28 mmHg 35-45 PO2 ARTERIAL (BEAKER) (test bgls=303) 322 mmHg 80-90 O2 SATURATION ARTERIAL (BEAKER) (test jvzc=818) 99.8 % 96.0-97.0 HCO3 ARTERIAL (BEAKER) (test vlgs=337) 23 mmol/L 21-29 BASE EXCESS ARTERIAL (BEAKER) (test mzoz=917) -3.5 mmol/L -2.0-3.0 PATIENT TEMPERATURE (BEAKER) (test hdwm=4341) 24.8 C FIO2 (BEAKER) (test dybj=8958) 65.0 % SODIUM NA-STAT [id number] 10:36:00* Test Item Value Reference Range Comments SODIUM (BEAKER) (test lmci=944) 130 meq/L 135-148 GLUCOSE-STAT [id number] 10:36:00* Test Item Value Reference Range Comments GLUCOSE RANDOM (BEAKER) (test kodt=660) 290 mg/dL 70-110 HGB/HCT (H&H) - STAT [id number] 10:36:00* Test Item Value Reference Range Comments HEMOGLOBIN (BEAKER) (test qkus=434) 9.9 g/dL 13.0-16.8 HEMATOCRIT (BEAKER) (test vldq=443) 29.0 % 40.0-50.0 CALCIUM, [id number] 09:14:00* Test Item Value Reference Range Comments CALCIUM IONIZED (BEAKER) (test vkzn=182) 1.09 mmol/L 1.12-1.27 PH, BLOOD (BEAKER) (test xxfv=2449) 7.40 BLOOD GAS, [id number] 09:14:00* Test Item Value Reference Range Comments PH ARTERIAL (BEAKER) (test njco=044) 7.43 7.35-7.45 PCO2 ARTERIAL (BEAKER) (test muau=011) 33 mmHg 35-45 PO2 ARTERIAL (BEAKER) (test anth=338) 228 mmHg 80-90 O2 SATURATION ARTERIAL (BEAKER) (test htgq=048) 99.5 % 96.0-97.0 HCO3 ARTERIAL (BEAKER) (test bmcg=637) 22 mmol/L 21-29 BASE EXCESS ARTERIAL (BEAKER) (test taed=414) -2.7 mmol/L -2.0-3.0 PATIENT TEMPERATURE (BEAKER) (test uknu=4736) 35.0 C FIO2 (BEAKER) (test obmy=7951) 60.0 % GLUCOSE-STAT [id number] 09:14:00* Test Item Value Reference Range Comments GLUCOSE RANDOM (BEAKER) (test vyus=818) 192 mg/dL 70-110 SODIUM NA-STAT [id number] 09:13:00* Test Item Value Reference Range Comments SODIUM (BEAKER) (test sueh=553) 135 meq/L 135-148 POTASSIUM-STAT [id number] 09:13:00* Test Item Value Reference Range Comments POTASSIUM (BEAKER) (test ahsx=711) 3.5 meq/L 3.6-5.5 HGB/HCT (H&H) - STAT [id number] 09:13:00* Test Item Value Reference Range Comments HEMOGLOBIN (BEAKER) (test iptt=314) 13.8 g/dL 13.0-16.8 HEMATOCRIT (BEAKER) (test qbds=217) 41.0 % 40.0-50.0 SODIUM NA-STAT [id number] 08:17:00* Test Item Value Reference Range Comments SODIUM (BEAKER) (test ayye=171) 137 meq/L 135-148 POTASSIUM-STAT [id number] 08:17:00* Test Item Value Reference Range Comments POTASSIUM (BEAKER) (test exrh=916) 3.8 meq/L 3.6-5.5 HGB/HCT (H&H) - STAT [id number] 08:17:00* Test Item Value Reference Range Comments HEMOGLOBIN (BEAKER) (test ekee=466) 15.9 g/dL 13.0-16.8 HEMATOCRIT (BEAKER) (test nvwr=347) 47.0 % 40.0-50.0 BLOOD GAS, [id number] 08:17:00* Test Item Value Reference Range Comments PH ARTERIAL (BEAKER) (test zlzd=259) 7.46 7.35-7.45 PCO2 ARTERIAL (BEAKER) (test ofyj=897) 33 mmHg 35-45 PO2 ARTERIAL (BEAKER) (test wbsv=852) 291 mmHg 80-90 O2 SATURATION ARTERIAL (BEAKER) (test zkoy=631) 99.7 % 96.0-97.0 HCO3 ARTERIAL (BEAKER) (test mxfj=310) 23 mmol/L 21-29 BASE EXCESS ARTERIAL (BEAKER) (test evsd=037) -0.1 mmol/L -2.0-3.0 PATIENT TEMPERATURE (BEAKER) (test unsz=7015) 36.0 C FIO2 (BEAKER) (test gjln=8439) 90.0 % GLUCOSE-STAT [id number] 08:17:00* Test Item Value Reference Range Comments GLUCOSE RANDOM (BEAKER) (test eyvh=247) 198 mg/dL 70-110 POCT-GLUCOSE [id number] 06:18:00* Test Item Value Reference Range Comments POC-GLUCOSE METER (BEAKER) (test vbzf=4228) 211 mg/dL 70-110 : TESTED AT [facility] [address] [place] [address], [id number]: Application Development Consultant/Supervisor Advice [phone] for RACHEL OSBORNE CTA CORONARY W or WO [id number] 13:39:00 [facility] [address] [place], [place] [address] Patient Name: REYMUNDO CHI JR MR #: [id number] : 1960 Age/Sex: 59/M Req #: [id number] Adm Physician: Ordered by: ABIGAIL VALADEZ MD Report #: [id number] Location: [place] Room/Bed: Procedure: [id number] C T/CTA CORONARY W or WO CALCIUM Exam Date: 09/27/19 E xam Time: 1100 REPORT STATUS: Kiarra d EXAM: CALCIUM SCORE AND CORONARY CTA INDICATION: [id number] SEVERE AORTIC STENOSIS COMPARISON: None. TECHNIQUE: Multi-dete ctor CT technology was employed (64 MDCT [employer]). Minimal slice thickness with ret rospective gating was performed following the intravenous administration of c ontrast material. The patient was premedicated with 50 mg by mouth and 2.5 mg i.v. metoprolol and 0.4 mg sublingual nitroglycerin for heart rate control and coronary dilation, respectively. IV CONTRAST: 100 mL of Isovue-370 ORAL CONTRAST: None COMPLICATION S: None RADIATION DOSE: Total DLP: 1566 mGy*cm Estimated effe ctive dose: (DLP x 0.015 x size factor) mSv CTDIvol has been reviewed. It is below the limits set by the Radiation Protocol Committee (RPC). For optimization of anatomic evaluation, multiplanar reconstruction, maximum int ensity projections, and advanced 3-D off-line postprocessing were performed on a dedicated stand-alone workstation under the direct supervision of the inter preting physician. QUALITY: Excellent FINDINGS: Calcium score has been quantified on several occasions. These are the most reliable measure ments: CALCIUM SCORE: The observed Agatston Calcium Score of 224 is at per centile 75% for subjects of the same age and gender who are free of clinical c ardiovascular disease and treated diabetes. The Agatston score for each vessel is as follows: LM: 35.1 LAD: 39.2 LCx: 57.6 RCA: 32.2 DISTRIBUTI ON OF THE CALCIFIED PLAQUES: Scattered moderate calcified plaques throughout a lmost all coronary arteries. This is worse in the left main coronary artery. 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 The proxim al common ostium of the LAD and RCA has a short segment of interarterial cours e between the proximal main pulmonary artery and aorta and also associated wit h an acute angulation and very small luminal diameter of 2 mm. Then, the LAD a nd RCA split. * The LAD runs anterior to the right ventricle and enters the interventricular groove to terminate at the left ventricular apex. * The RCA runs into the normal right AV groove and gives off the PDA. * The left main coronary artery gives off to the left circumflex coronary artery. * There is a small environmental services associate branch that arises directly from the left sinus of Valsalva. Left Main Coronary Artery: The left main is normal sized vessel that gives off the circumflex coronary artery. Punctate calcification in the proximal segment results in minimal narrowing (1-24%). Otherwise, is widely pa tent. Left Anterior Descending Coronary Artery: The anomalous LAD is a larg e size vessel that wraps around the apex. It gives rise to 2 acute diagonal br anches. Scattered calcified and noncalcified atherosclerotic changes in the pr oximal segment results in mild stenosis (25-49%). The mid segment has a short course of intramural segment at the level of the distal anterior right ventric ular wall without significant narrowing. Otherwise, the mid and distal segment s are widely patent without significant atherosclerotic disease. Left Cir cumflex Coronary Artery: The LCX is a normal size vessel, which is non-dominan t. It gives rise to 1 large obtuse marginal branches. Mild scattered atherosc lerotic changes throughout the obscure small signal resulting in mild multifoc al stenosis (25-49%). The LCx is widely patent without atherosclerotic disease . Right Coronary Artery: Occlusion of the proximal RCA, likely chronic. The re is faint contrast opacification of the distal segment, likely due to distal collaterals. CARDIAC MORPHOLOGY AND FUNCTION: The right and left atria and ventricles are morphologically normal. There is normal resting global le ft ventricular systolic function. LVEF: 63.6%, LV end diastolic v olume: 128.1 cc LV end systolic volume: 46.7 cc LV stroke volume: 5.1 cc LIMITED CHEST: Limited views of the visualized chest show no abnormality within chest wall and mediastinum. No mediastinal lymphadenopathy. The visualized lungs are clear. 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 Severe calcification of the aortic valve. Mild scattered atherosclerotic calcifications of the visual ized thoracic aorta. LIMITED ABDOMEN: Limited images of the upper abdomen reveal no abnormalities of the visualized organs. BONES: No acute osse ous abnormalities. IMPRESSION: 1. Total Agatston Calcium Score: 224 t hat corresponds to percentile 75%, representing moderate plaque burden. 2. 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 The common ostium has a short segment of interarterial course and acute angulation with minimal luminal diameter of 2 mm. 3. Sca ttered atherosclerotic changes throughout the coronary arteries resulting in m ultifocal areas of mild stenosis in the proximal LAD (25-49%) and obtuse mauricio nal. Chronic occlusion of the RCA. There appears to be distal reconstitution b y collaterals. Recommend further evaluation with interventional angiogram. Reference: [email or web address] 3. Severe aortic valve calcification. 4. 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 Signed by: Dr. Lay Ballesteros M.D. on 09/27/2019 2:46 PM Dictated By: LAY BALLESTEROS MD [id number] Transcribed By: EMILEE on 09/27/19 1446 COPY TO: ABIGAIL VALADEZ MD HEMOGLOBIN A1C 2019-09-26 17:12:00* Test Item Value Reference Range Comments HEMOGLOBIN A1C (BERUBÉN) (test ktuz=541) 9.1 % 4.3-6.1 LIPID [id number] 15:34:00* Test Item Value Reference Range Comments TRIGLYCERIDES (BEAKER) (test sfob=913) 157 mg/dL CHOLESTEROL (BEAKER) (test smod=550) 224 mg/dL HDL CHOLESTEROL (BEAKER) (test lxzt=281) 51 mg/dL LDL CHOLESTEROL CALCULATED (BilbusAKER) (test lrnf=972) 142 mg/dL Triglyceride Reference Range: Low Risk <150 Borderline 150-199 High Risk 200-499 Very High Risk >=500Cholesterol Reference Range: Low Risk <200 Borderline 200-239 High Risk >240HDL Cholesterol Reference Range: Low Risk >=60 High Risk <40LDL Cholesterol Reference Range: Optimal <100 Near Optimal 100-129 Borderline 130-159 High 160-189 Very High >=190 Application Development Consultant ID - BSBASIC METABOLIC [id number] 15:34:00* Test Item Value Reference Range Comments SODIUM (BEAKER) (test nyjt=621) 138 meq/L 136-145 POTASSIUM (BEAKER) (test peuw=270) 4.2 meq/L 3.5-5.1 CHLORIDE (BEAKER) (test coef=170) 104 meq/L 98-107 CO2 (BEAKER) (test vgyq=576) 26 meq/L 22-29 BLOOD UREA NITROGEN (BEAKER) (test rmty=556) 12 mg/dL 7-21 CREATININE (BEAKER) (test bpuo=998) 0.94 mg/dL 0.57-1.25 GLUCOSE RANDOM (BEAKER) (test wgxm=126) 234 mg/dL 70-105 CALCIUM (BEAKER) (test ggdz=312) 9.8 mg/dL 8.4-10.2 EGFR (BEAKER) (test pczz=8027) 82 mL/min/1.73 sq m ESTIMATED GFR IS NOT ACCURATE CREATININE CLEARANCE IN PREDICTING GLOMERULAR FILTRATION RATE. ESTIMATED GFR IS NOT APPLICABLE FOR DIALYSIS PATIENTS. Application Development Consultant ID - [id number] 15:25:00* Test Item Value Reference Range Comments PROTIME (BEAKER) (test kkbg=905) 12.5 seconds 11.9-14.2 INR (BEAKER) (test mwuw=901) 1.0 <=5.9 Effective 01/23/2019: PT Reference Range ChangeNew: 11.9-14.2 Previous: 11.7-14. 7RECOMMENDED COUMADIN/WARFARIN INR THERAPY RANGESSTANDARD DOSE: 2.0-3.0 Include s: PROPHYLAXIS for venous thrombosis, systemic embolization; TREATMENT for venou s thrombosis and/or pulmonary embolus.HIGH RISK: Target INR is 2.5-3.5 for patie nts wiht mechanical heart valves.CBC W/PLT COUNT & AUTO [id number] 15:19:00* Test Item Value Reference Range Comments WHITE BLOOD CELL COUNT (BEAKER) (test owhl=727) 8.7 K/ L 3.5-10.5 RED BLOOD CELL COUNT (BEAKER) (test buva=066) 5.77 M/ L 4.63-6.08 HEMOGLOBIN (BEAKER) (test rbpr=201) 16.9 GM/DL 13.7-17.5 HEMATOCRIT (BEAKER) (test rqox=924) 49.6 % 40.1-51.0 MEAN CORPUSCULAR VOLUME (BEAKER) (test ibdz=191) 86.0 fL 79.0-92.2 MEAN CORPUSCULAR HEMOGLOBIN (BEAKER) (test eqic=478) 29.3 pg 25.7-32.2 MEAN CORPUSCULAR HEMOGLOBIN CONC (BEAKER) (test wxrs=438) 34.1 GM/DL 32.3-36.5 RED CELL DISTRIBUTION WIDTH (BEAKER) (test xigw=459) 12.5 % 11.6-14.4 PLATELET COUNT (BEAKER) (test xofn=577) 221 K/CU MM 150-450 MEAN PLATELET VOLUME (BEAKER) (test qbdm=692) 9.3 fL 9.4-12.4 NUCLEATED RED BLOOD CELLS (BEAKER) (test wxgb=905) 0 /100 WBC 0-0 NEUTROPHILS RELATIVE PERCENT (BEAKER) (test sxyj=903) 50 % LYMPHOCYTES RELATIVE PERCENT (BEAKER) (test fkfd=394) 39 % MONOCYTES RELATIVE PERCENT (BEAKER) (test axfe=770) 6 % EOSINOPHILS RELATIVE PERCENT (BEAKER) (test uuwn=590) 3 % BASOPHILS RELATIVE PERCENT (BEAKER) (test pkxd=992) 1 % NEUTROPHILS ABSOLUTE COUNT (BEAKER) (test npwr=419) 4.37 K/ L 1.78-5.38 LYMPHOCYTES ABSOLUTE COUNT (BEAKER) (test svdk=010) 3.41 K/ L 1.32-3.57 MONOCYTES ABSOLUTE COUNT (BEAKER) (test vekr=198) 0.52 K/ L 0.30-0.82 EOSINOPHILS ABSOLUTE COUNT (BEAKER) (test itxi=063) 0.30 K/ L 0.04-0.54 BASOPHILS ABSOLUTE COUNT (BEAKER) (test uueo=588) 0.09 K/ L 0.01-0.08 IMMATURE GRANULOCYTES-RELATIVE PERCENT (BEAKER) (test pkvz=1353) 0 % 0-1
[2019-10-29] MEDS ORDERED: ONDANSETRON HCL 4 MG ORAL DISINTEGRATING TAB ONE (06:26)
[2019-10-29] MEDS ORDERED: HYDROCODONE/APAP 5MG-325MG TAB ONE (06:27)
[2019-10-29] MEDS ORDERED: KETOROLAC TROMETHAMINE 60 MG/2 ML VIAL ONE (06:27)
[2019-10-29] MEDS ORDERED: KETOROLAC TROMETHAMINE 60 MG/2 ML VIAL IM ONE (06:30)
[2019-10-29] MEDS ORDERED: HYDROCODONE/APAP 10MG-325MG TAB PO ONE (06:30)
== END 2019-10-29 07:00 | disposition home or self-care (01) ==
LOC: FSED 05:39
DX: H65.01 Acute serous otitis media, right ear (principal); H60.11 Cellulitis of right external ear; Z95.1 Presence of aortocoronary bypass graft
CPT/HCPCS: 99282; J1885; Q0162

== ENCOUNTER → 2020-07-03 | Day surgery (SDC) | payer BC ==
[2020-07-01 17:21] LABS: BASOPHILS # (AUTO) 0.1 (0.0-0.1); BASOPHILS % 0.8 % (0.0-1.0); EOSINOPHILS # (AUTO) 0.3 (0.0-0.4); EOSINOPHILS % 3.4 % (0.0-6.0); HEMOGLOBIN 17.8 g/dL (14.0-18.0); LYMPHOCYTES # (AUTO) 2.7 (1.0-3.2); LYMPHOCYTES % 29.5 % (18.0-39.1); MEAN CORPUSCULAR HEMOGLOBIN 29.5 pg (28-32); MEAN CORPUSCULAR HGB CONC 34.2 g/dL (31-35); MEAN CORPUSCULAR VOLUME 86.2 fL (81-99); MONOCYTES # (AUTO) 0.6 (0.2-0.8); MONOCYTES % 6.5 % (4.4-11.3); NEUTROPHILS # (AUTO) 5.4 (2.1-6.9); NEUTROPHILS % 59.5 % (38.7-80.0); PLATELET COUNT 213 x10e3/uL (140-360); RED BLOOD COUNT 6.03 x10e6/uL (4.3-5.7); RED CELL DISTRIBUTION WIDTH 12.3 % (11.7-14.4)
[2020-07-01 17:37] LABS: ANION GAP 15.1 mmol/L (8-16); BLOOD UREA NITROGEN 15 mg/dL (7-26); BUN/CREATININE RATIO 13 (6-25); CALCIUM 9.5 mg/dL (8.4-10.2); CARBON DIOXIDE 22 mmol/L (22-29); CHLORIDE 102 mmol/L (98-107); CREATININE, SERUM 1.17 mg/dL (0.72-1.25); EST GLOMERULAR FILTRATION RATE > 60 ML/MIN (60-); GLUCOSE 319 mg/dL (74-118); POTASSIUM 4.1 mmol/L (3.5-5.1); SODIUM 135 mmol/L (136-145)
[~2020-07-03] MED LIST changes: +ACETAMINOPHEN/CODEINE 300MG - 30MG TAB ONE; +ANTIBIOTIC PO; +ASPIRIN81 MG PO; +BUPIVACAINE 0.25% 30ML SDV INJ ONE; +CEFAZOLIN SOD 1 GM VIAL ONE; +DEXAMETHASONE SOD PHOS INJ 4 MG/ML VIAL ONE; +FENTANYL CITRATE/PF 100MCG/2 ML INJ ONE; +INSULIN REGULAR, HUMAN 100 UNIT/1 ML 3ML VIAL ONE; +LIDOCAINE HCL 2% LOCAL INJ 5 ML SDV VIAL INJ ONE; +MIDAZOLAM HCL 2 MG/2 ML VIAL ONE; +ONDANSETRON HCL INJ 2MG/ML 2ML 2 MG/ML VIAL ONE; +PROPOFOL IV EMULSION 10 MG/ML 20 ML VIAL ONE; +SEVOFLURANE INHAL SOLN 250 ML PEN BTL ONE
[2020-07-03 13:15] VITALS: BP 126/83
== END | disposition home or self-care (01) ==
LOC: OR 07:57
PROVIDERS: ATTEND Surgery
DX: L02.416 Cutaneous abscess of left lower limb (principal); E11.9 Type 2 diabetes mellitus without complications; I25.810 Atherosclerosis of coronary artery bypass graft(s) without angina pectoris; F17.210 Nicotine dependence, cigarettes, uncomplicated; Z01.810 Encounter for preprocedural cardiovascular examination; Z01.812 Encounter for preprocedural laboratory examination; Z01.818 Encounter for other preprocedural examination; Z11.59 Encounter for screening for other viral diseases; Z79.84 Long term (current) use of oral hypoglycemic drugs; Z79.82 Long term (current) use of aspirin; Z95.1 Presence of aortocoronary bypass graft; Z95.2 Presence of prosthetic heart valve
CPT/HCPCS: 10060; 36415 ×2; 71046; 80048; 82948; 85025; 87071; 87075; 87205; 93005; J0690; J1100; J2001; J2250; J2405; J2704; J3010; U0002; J1817